=== PATIENT | female | born 1990 | race Caucasian/White ===

== ENCOUNTER 2020-02-13 20:09 | Emergency (ER) | payer BC ==
[~2020-02-13] VITALS: Ht 165.1 cm; Wt 82.1 kg
--- NOTE | 2020-02-13 20:27 | PHYS DOC ---
Past History Past Medical History: GERD Smoking: Cigarettes Alcohol Use: Occasionally Drug Use: Marijuana General Adult EDM: Chief Complaint: ABDOMINAL PAIN HPI: HPI: "..I ve had GERD before.. and I get some epigastric when I over eat.. I had the problems for years.. but it much worse the last few days... 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 but pain has been off and on after I moved a fish tank a month ago.. here in my belly button area... but I atge out at the [email or web address]... rice and shrimp... and since that time the pain 06/14... ... it a little better now.. I move up here from [place].. in May ... and not really go established with a doctor... " Patient is a 29 year old female who presents with above hx and complaints of abdomen pain x several months. Pt. epigastric pain has grown more severe in the past month. Patient localized pain and epigastric area after eating. Has had significant problems since moved to this area in May from [place]. Patient states she has been under increased stress working at the [employer] as a alcohol law enforcement agent. Patient does smoke approximately 1 pack/day. Patient has a acute exacerbation of her epigastric pain after eating Arabic food. Patient states that after eating shrimp and rice had nausea and almost vomited. Patient also complaining of some periumbilical pain after lifting a fish tank 1 month ago. Patient denies any history of recent tarry or black stools. Patient has not followed up with a primary care as yet for her symptoms. Patient currently rating her pain is 7 out of 10 in the emergency department. No recent travel outside the [place] area. 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 Patient has never had a EGD evaluation. Has followed with a primary care in [place] for similar type complaints. Review of Systems: Review of Systems: Constitutional: Denies fever or chills Eyes: Denies change in visual acuity HENT: Denies nasal congestion or sore throat Respiratory: Denies cough or shortness of breath Cardiovascular: Denies chest pain or edema GI: Complaints abdominal pain, nausea,. Denies vomiting, bloody stools or diarrhea . Some hx of constipation. : Denies dysuria Musculoskeletal: Denies back pain or joint pain Integument: Denies rash Neurologic: Denies headache, focal weakness or sensory changes Endocrine: Denies polyuria or polydipsia Lymphatic: Denies swollen glands Psychiatric: Denies depression or anxiety Heart Score: HEART Score for Chest Pain: HEART Score for Chest Pain Response (Comments) Value History Slighlty/Non-Suspicious 0 ECG Normal 0 Age < 45 0 Risk Factors 1 or 2 Risk Factors 1 Troponin < Normal Limit 0 Total 1 Risk Factors: Risk Factors: DM, Current or recent (<one month) smoker, HTN, HLP, family histo ry of CAD, obesity. Risk Scores: Score 0 - 3: 2.5% MACE over next 6 weeks - Discharge Home Score 4 - 6: 20.3% MACE over next 6 weeks - Admit for Clinical Observation Score 7 - 10: 72.7% MACE over next 6 weeks - Early Invasive Strategies Family History: Family History: Noncontributory to presentation Current Medications: Current Meds: See nursing for home meds Allergies: Allergies: No known drug allergies Physical Exam: PE: Constitutional: Moderate acute distress, non-toxic appearance. [] HENT: Normocephalic, atraumatic, bilateral external ears normal, oropharynx moist, no oral exudates, nose normal. [] Eyes: PERRLA, EOMI, conjunctiva normal, no discharge. [] Neck: Normal range of motion, no tenderness, supple, no stridor. [] Cardiovascular:Heart rate regular rhythm, no murmur [] Lungs & Thorax: Bilateral breath sounds equal at apex with scattered wheezes throughout auscultation [] Abdomen: Bowel sounds normal, soft, epigastric and umbilicus tenderness, no masses, no pulsatile masses. Obese. Patient declines rectal exam at this time. Rebound to right upper quadrant epigastric area. Skin: Warm, dry, no erythema, no rash. [] Back: No tenderness, no CVA tenderness. [] Extremities: No tenderness, no cyanosis, no clubbing, ROM intact, no edema. [] No psoas sign. Neurologic: Alert and oriented X 3, normal motor function, normal sensory function, no focal deficits noted. [] Psychologic: Affect anxious, judgement normal, mood normal. [] Current Patient Data: Vital Signs: Vital Signs Date Time Temp Pulse Resp B/P (MAP) Pulse Ox O2 Delivery O2 Flow Rate FiO2 02/13/20 20:17 98.1 85 20 127/69 (88) 97 Room Air EKG: EKG: My interpretation EKG shows a sinus rhythm at 69 bpm. No findings of acute STEMI. No acute morphology. A normal EKG [] Radiology/Procedures: Radiology/Procedures: [][address] [address] IMAGING REPORT Signed PATIENT: TELLY NAVA ACCOUNT: [id number] : 04/14/1981 LOCATION: ER AGE: 38 SEX: F EXAM STATUS: REG ER ORD. PHYSICIAN: NEREIDA CHRISTINE MD REASON: neck pain PROCEDURE: CHEST PA & LATERAL INDICATION: Neck pain COMPARISON: February 2019 FINDINGS: Single view of chest obtained. No focal airspace consolidation or pulmonary edema. Degenerative changes the spine with osteophyte formation. Cardiac silhouette is unremarkable. IMPRESSION: * No focal airspace consolidation or edema. Electronically signed by: Stalin Aceves MD (02/13/2020 10:07 PM) [id number] DICTATED AND SIGNED BY: STALIN ACEVES MD DATE: 02/13/202206 CC: NEREIDA CHRISTINE MD; CHIKI VILLARREAL DO, MPH ~ Course & Med Decision Making: Course & Med Decision Making Pertinent Labs and Imaging studies reviewed. (See chart for details) Patient stay on clear fluid diet for the next 2 days. Take Tylenol only for pain. Avoid NSAIDs. Encourage patient stop smoking. Patient encouraged to follow-up with primary care. Patient take Pepcid 20 mg a day for the next 30 days. Patient return if any concerns. If continued pain after passage of stool to have reevaluation. Impression: 1. Abdomen Pain 2. GERD/ Gastritis 3. Tobacco and Marijuana Use 4. Constipation [] Dragon Disclaimer: Dragon Disclaimer: This electronic medical record was generated, in whole or in part, using a voice recognition dictation system. Departure Departure: Disposition: HOME/RESIDENCE PRIOR TO ADM Condition: STABLE Referrals: PCP,NO (PCP) Scripts Famotidine (PEPCID) 20 Mg Tablet 20 MG PO DAILY for GERD for 30 Days, #30 TAB Prov: NEREIDA CHRISTINE MD 02/13/20 Rebel Disclaimer This chart was dictated in whole or in part using Voice Recognition software in a busy, high-work load, and often noisy Emergency Department environment. It may contain unintended and wholly unrecognized errors or omissions. NEREIDA CHRISTINE MD February 13, 2020 20:27
[2020-02-13 21:40] LABS: BACTERIA,URINE 0 /HPF (0-FEW); BILIRUBIN,URINE NEG (NEG); CLARITY,URINE CLEAR; COLOR,URINE YELLOW; GLUCOSE,URINE NEG (NEG); NITRITE,URINE NEG (NEG); RBC,URINE OCC /HPF (0-2); SQUAMOUS EPITHELIAL CELL,UR FEW /LPF; UROBILINOGEN,URINE 0.2 mg/dL (0.2 mg/dL); WBC,URINE OCC /HPF (0-4)
[2020-02-13] MEDS ORDERED: IV RINGERS SOLUTION,LACTATED 1,000 ML IV SCH (22:00)
[2020-02-13] MEDS ORDERED: FAMOTIDINE 20 MG/2 ML VIAL IVP ONE (22:00)
[2020-02-13] MEDS ORDERED: SUCRALFATE 1 GM TABLET. PO ONE (22:00)
[2020-02-13] MEDS ORDERED: ONDANSETRON PF 4 MG/2 ML VIAL. IVP ONE (22:00)
[2020-02-13] MEDS ORDERED: MAGNESIUM HYDROXIDE 2,400 MG/30 ML ORAL.SUSP. PO ONE (22:00)
[2020-02-13 22:01] LABS: BASO % 1 % (0-3); EOS # 0.2 x10^3/uL (0.0-0.7); EOS % 2 % (0-3); LYMPH # 2.8 x10^3/uL (1.0-4.8); LYMPH % 35 % (24-48); MEAN CORPUSCULAR HEMOGLOBIN 30 pg (25-35); MEAN CORPUSCULAR HGB CONC 34 g/dL (31-37); MEAN CORPUSCULAR VOLUME 88 fL (79-100); MONO % 13 % (0-9); NEUT % 50 % (31-73); PLATELET COUNT 292 x10^3/uL (140-400); RED BLOOD COUNT 4.66 x10^6/uL (3.50-5.40); RED CELL DISTRIBUTION WIDTH 13.5 % (11.5-14.5)
--- NOTE | 2020-02-13 22:05 | EKG ---
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
[2020-02-13 22:13] LABS: BARBITURATES NEG (NEG); BENZODIAZEPINES NEG (NEG); CANNABINOIDS POS (NEG); COCAINE NEG (NEG); METHADONE NEG (NEG); OPIATES NEG (NEG); PHENCYCLIDINE NEG (NEG)
[2020-02-13 22:13] LABS: CALCIUM 8.6 mg/dL (8.5-10.1); CREATININE 0.7 mg/dL (0.6-1.0); GFR 98.9; POTASSIUM 3.8 mmol/L (3.5-5.1)
[2020-02-13 22:14] LABS: AMPHETAMINE/METHAMPHETAMINE NEG (NEG)
[2020-02-13 22:20] LABS: ALBUMIN 3.6 g/dL (3.4-5.0); DIRECT BILIRUBIN 0.1 mg/dL (0.0-0.2); TOTAL BILIRUBIN 0.2 mg/dL (0.2-1.0); TOTAL PROTEIN 7.3 g/dL (6.4-8.2)
--- NOTE | 2020-02-13 23:25 | RAD ---
Acute Abdominal Series: Technique: PA view of the chest and supine and upright views of the abdomen were obtained. History: Pain. Comparison: None. Findings: The lungs and pleural margins are clear. There is air scattered throughout the colon. There is a paucity small bowel gas. The right lobe of liver appears prominent. There is no free air. Impression: 1. Nonobstructive bowel gas pattern. A mild colonic ileus or constipation is possible. 2. 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 Electronically signed by: Jamshid Ervin III, MD (02/13/2020 11:21 PM) [id number]
[2020-02-13] MEDS ORDERED: FAMO-63 PO (23:46)
[2020-02-13 23:55] VITALS: BP 123/72
== END 2020-02-14 00:06 | disposition home or self-care (01) ==
LOC: ER 20:09
DX: K59.00 Constipation, unspecified (principal); R10.13 Epigastric pain; R10.33 Periumbilical pain; K21.9 Gastro-esophageal reflux disease without esophagitis; F17.210 Nicotine dependence, cigarettes, uncomplicated; F12.10 Cannabis abuse, uncomplicated
CPT/HCPCS: 36415; 74022; 80048; 80076; 80307; 81001; 82150; 82550; 83690; 84484; 85025; 85610; 85730; 87086; 93005; 96374; 96375; 99285; J2405; J3490; J7120